=== PATIENT | female | born 1985 | race African-American/Black ===

== ENCOUNTER 2017-10-08 11:58 | Emergency (ER) | payer SELFPAY | END 2017-10-08 12:38 | disposition home or self-care (01) | LOC: NAV ERS 11:58 | DX: K04.7 Periapical abscess without sinus (principal); K02.9 Dental caries, unspecified; F41.9 Anxiety disorder, unspecified; F17.210 Nicotine dependence, cigarettes, uncomplicated | CPT/HCPCS: 99282 ==

== ENCOUNTER 2018-04-22 18:58 | Emergency (ER) | payer SELFPAY | END 2018-04-22 19:28 | disposition home or self-care (01) | LOC: NAV ERS 18:58 | DX: K08.89 Other specified disorders of teeth and supporting structures (principal) | CPT/HCPCS: 99281 ==